=== PATIENT | male | born 1965 | race Caucasian/White ===

== ENCOUNTER 2021-03-09 12:16 | Emergency (ER) | payer BC, OTHER ==
[2021-03-09] MEDS ORDERED: ASPIRIN 81 MG CHEW (CHILDREN'S ASA) PO ONE (12:30)
[2021-03-09 12:32] LABS: HEMATOCRIT 48 % (40-54); LYMPHOCYTES % (AUTO) 14 % (12-44); MEAN CORPUSCULAR HEMOGLOBIN 29 PG (25-34); MEAN CORPUSCULAR HGB CONC 34 G/DL (32-36); MEAN CORPUSCULAR VOLUME 87 FL (80-99); MEAN PLATELET VOLUME 9.9 FL (7.4-10.4); MONOCYTES % (AUTO) 8 % (0-12); NEUTROPHILS % (AUTO) 74 % (42-75); PLATELET COUNT 229 10^3/uL (130-400); WHITE BLOOD COUNT 7.9 10^3/uL (4.3-11.0)
[2021-03-09 12:33] LABS: BASOPHILS # (AUTO) 0.1 10^3/uL (0.0-0.1); BASOPHILS % (AUTO) 1 % (0-10); EOSINOPHILS # (AUTO) 0.3 10^3/uL (0.0-0.3); EOSINOPHILS % (AUTO) 4 % (0-10); LYMPHOCYTES # (AUTO) 1.1 X 10^3 (1.0-4.0); MONOCYTES # (AUTO) 0.6 X 10^3 (0.0-1.0); NEUTROPHILS # (AUTO) 5.8 X 10^3 (1.8-7.8)
--- NOTE | 2021-03-09 12:37 | ED Chest Pain ---
General Chief Complaint: Chest Pain Stated Complaint: CHEST PAIN | SOB Source: patient History of Present Illness Date Seen by Provider: Mar 09, 2021 Time Seen by Provider: 12:20 Initial Comments 55-year-old male presenting with complaints of chest pressure and indigestion sensation since around 9 or 10 am this morning. He states he was just working on his boat when this started for him. He was also having shortness of breath which is unusual for him. He denies any nausea or vomiting, abdominal pain, diarrhea, burning with urination, cough, fever, chills, radiation of the pain. He did not take any medication to try and help with the symptoms. He does not feel like his chest pressure or shortness of breath worsens with exertion such as walking to the emergency department. It has been fairly constant since onset. He rates it at 6 or 7 out of 10. He has not had symptoms like this before. He denies having a prior heart attack or cardiac history other than high blood pressure. He recently was started on lisinopril. 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 NTG SL CORNCOB PIPE SUPERVISOR: No Associated Symptoms: No abdominal pain, No back pain, No diaphoresis, No dizziness, No edema, No fatigue, No fever/chills, No headache; heartburn; No nausea/vomiting, No rash; shortness of breath; No swelling/lump in chest, No syncope Allergies and Home Medications Allergies Coded Allergies: No Known Drug Allergies (Unverified , 03/09/21) Home Medications Pantoprazole Sodium 40 Mg Tablet., 40 MG PO DAILY Prescribed by: ANA ACOSTA on 03/09/21 5368 Patient Home Medication List Home Medication List Reviewed: Yes Review of Systems Review of Systems Constitutional: No chills, No fever EENTM: No Symptoms Reported Respiratory: See HPI Cardiovascular: See HPI Gastrointestinal: See HPI Genitourinary: No Symptoms Reported Musculoskeletal: no symptoms reported Skin: no symptoms reported Psychiatric/Neurological: No Symptoms Reported Endocrine: No Symptoms Reported Hematologic/Lymphatic: No Symptoms Reported Past Tyttnaw-Ftpmte-Zxnowb Hx Past Med/Social Hx: Reviewed Nursing Past Med/Soc Hx Patient Social History Alcohol Use: Denies Use Smoking Status: Never a Smoker 2nd Hand Smoke Exposure: No Recent Hopitalizations: No Seasonal Allergies Seasonal Allergies: Yes Past Medical History Surgeries: No Respiratory: No Cardiac: Yes Hypertension Neurological: No Genitourinary: No Gastrointestinal: No Musculoskeletal: Yes Gout Endocrine: No HEENT: No Cancer: No Psychosocial: No Integumentary: No Blood Disorders: No Physical Exam Vital Signs Vital Signs - First Documented 03/09/21 12:21 Temp 36.2 Pulse 103 Resp 16 B/P (MAP) 130/74 (92) Pulse Ox 96 Capillary Refill : Less Than 3 Seconds Height, Weight, BMI Height: '" Weight: lbs. oz. kg; BMI Method: General Appearance: No Apparent Distress, Obese HEENT: PERRL/EOMI Neck: Full Range of Motion, Normal Inspection, Non Tender, Supple; No Carotid Bruit Respiratory: Chest Non Tender, Lungs Clear, Normal Breath Sounds, No Accessory Muscle Use, No Respiratory Distress Cardiovascular: Regular Rate, Rhythm, Normal Peripheral Pulses Gastrointestinal: Normal Bowel Sounds, No Pulsatile Mass, Non Tender, Soft Rectal: Deferred Extremity: Normal Capillary Refill, Normal Inspection, Normal Range of Motion, Non Tender, No Pedal Edema Neurologic/Psychiatric: Alert, Oriented x3, No Motor/Sensory Deficits, 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 Norm as Tested Skin: Normal Color, Warm/Dry Images 1 - reports pressure sensation/indigestion throughout center of chest Progress/Results/Core Measures Results/Orders Lab Results Laboratory Tests Test 03/09/21 12:23 03/09/21 14:28 Range/Units White Blood Count 7.9 4.3-11.0 10^3/uL Red Blood Count 5.47 4.35-5.85 10^6/uL Hemoglobin 16.0 13.3-17.7 G/DL Hematocrit 48 40-54 % Mean Corpuscular Volume 87 80-99 FL Mean Corpuscular Hemoglobin 29 25-34 PG Mean Corpuscular Hemoglobin Concent 34 32-36 G/DL Red Cell Distribution Width 13.0 10.0-14.5 % Platelet Count 229 130-400 10^3/uL Mean Platelet Volume 9.9 7.4-10.4 FL Immature Granulocyte % (Auto) 1 % Neutrophils (%) (Auto) 74 42-75 % Lymphocytes (%) (Auto) 14 12-44 % Monocytes (%) (Auto) 8 0-12 % Eosinophils (%) (Auto) 4 0-10 % Basophils (%) (Auto) 1 0-10 % Neutrophils # (Auto) 5.8 1.8-7.8 X 10^3 Lymphocytes # (Auto) 1.1 1.0-4.0 X 10^3 Monocytes # (Auto) 0.6 0.0-1.0 X 10^3 Eosinophils # (Auto) 0.3 0.0-0.3 10^3/uL Basophils # (Auto) 0.1 0.0-0.1 10^3/uL Immature Granulocyte # (Auto) 0.1 0.0-0.1 10^3/uL Prothrombin Time 13.6 12.2-14.7 SEC INR Comment 1.0 0.8-1.4 Activated Partial Thromboplast Time 32 24-35 SEC Sodium Level 145 135-145 MMOL/L Potassium Level 4.0 3.6-5.0 MMOL/L Chloride Level 106 98-107 MMOL/L Carbon Dioxide Level 27 21-32 MMOL/L Anion Gap 12 5-14 MMOL/L Blood Urea Nitrogen 19 H 7-18 MG/DL Creatinine 1.15 0.60-1.30 MG/DL Estimat Glomerular Filtration Rate > 60 BUN/Creatinine Ratio 17 Glucose Level 119 H 70-105 MG/DL Calcium Level 9.8 8.5-10.1 MG/DL Corrected Calcium 9.7 8.5-10.1 MG/DL Magnesium Level 2.1 1.6-2.4 MG/DL Total Bilirubin 0.6 0.1-1.0 MG/DL Aspartate Amino Transf (AST/SGOT) 21 5-34 U/L Alanine Aminotransferase (ALT/SGPT) 34 0-55 U/L Alkaline Phosphatase 100 40-136 U/L Troponin I < 0.30 < 0.30 <0.30 NG/ML Pro-B-Type Natriuretic Peptide 31.8 <75.0 PG/ML Total Protein 7.0 6.4-8.2 GM/DL Albumin 4.1 3.2-4.5 GM/DL Lipase 32 8-78 U/L My Orders Orders - ANA ACOSTA MD Cbc With Automated Diff (03/09/21 12:21) Magnesium (03/09/21 12:21) Chest 1 View Ap/Pa Only (03/09/21 12:21) Ekg Tracing (03/09/21 12:21) Comprehensive Metabolic Panel (03/09/21 12:21) Protime With Inr (03/09/21 12:21) Partial Thromboplastin Time (03/09/21 12:21) O2 (03/09/21 12:21) Monitor-Rhythm Ecg Trace Only (03/09/21 12:21) Aspirin Chewable Tablet (Baby Aspirin Ch (03/09/21 12:30) Ed Iv/Invasive Line Start (03/09/21 12:21) Lipase (03/09/21 12:21) Troponin I Fs (03/09/21 12:21) Probnp Fs (03/09/21 12:21) Ns Iv 1000 Ml (Sodium Chloride 0.9%) (03/09/21 12:42) Pantoprazole Injection (Protonix Injecti (03/09/21 12:42) Metoprolol Tartrate Injection (Lopressor (03/09/21 12:42) Troponin I Fs (03/09/21 14:15) Medications Given in ED Current Medications Medications Dose Ordered Sig/Carlos Alberto Route Start Time Stop Time Status Last Admin Dose Admin Aspirin 324 mg ONCE ONCE PO 03/09/21 12:30 03/09/21 12:31 DC 03/09/21 12:33 324 MG Vital Signs/I&O 03/09/21 03/09/21 12:21 15:15 Temp 36.2 Pulse 103 69 Resp 16 16 B/P (MAP) 130/74 (92) 144/90 Pulse Ox 96 97 Progress Progress Note #1: Progress Note Check labs as well as electrocardiogram and chest x-ray to evaluate for possible acute coronary syndrome or MS. With his shortness of breath will also for pneumonia or effusion with the x-ray. Try treating with 325 mg of aspirin for cardiac chest pain, a liter of IV fluids for hydration, Protonix for indigestion Differential diagnosis includes myocardial infarction, pneumonia, hypertensive emergency, heart failure, pleural effusion, lung mass Progress Note #2: Time: 13:19 Progress Note Chest x-ray does not show any acute abnormality. His electrocardiogram does not show ST elevation. The CBC and chemistry are stable without acute significant abnormality and his cardiac enzymes are negative. Will check and see how the patient is feeling and anticipate getting repeat enzymes at 2 hours Progress Note #3: Time: 14:15 Progress Note Will see what 2nd troponin shows but provided it is still negative will plan on discharge to home to have him follow up as outpatient and may need risk stratification testing. Continue a PPI while waiting on follow up Progress Note #4: Progress Note 2nd troponin still < 0.3 so will discharge to home. Pt reports symptoms completely resolved. Treat with PPI and have him check with clinic for risk stratificaiton testing. Return and follow up precautions reviewed. Initial ECG Impression Date: Mar 09, 2021 Initial ECG Impression Time: 12:24 Initial ECG Rate: 100 Initial ECG Rhythm: S.Tach Initial ECG Comparisson: No Previous ECG Available Comment Sinus tachycardia with a heart rate 100 bpm. WA interval [address] elevation. QT interval 324 ms with a QTc interval 418 ms. No previous tracing available for comparison. Diagnostic Imaging Diagonstic Imaging: Xray Plain Films/CT/US/NM/MRI: chest Comments NAME: JENISE LEONARDO [facility] REC#: [id number] PT STATUS: REG ER : 1965 PHYSICIAN: ANA ACOSTA MD ADMIT DATE: 03/09/21/ER FS Draft Date of Exam:03/09/21 CHEST 1 VIEW AP/PA ONLY INDICATION: Chest pain. No prior examination is available for comparison. FINDINGS: The heart size, mediastinal configuration, and pulmonary vascularity are within normal limits. There is no pleural effusion, pneumothorax, or pneumonia. The osseous structures are unremarkable. IMPRESSION: No acute cardiopulmonary abnormality. Dictated on workstation # [id number] Dict: 03/09/21 1235 Trans: 03/09/21 1240 [facility] [id number] Interpreted by: ANNAMARIA MATTHEW MD Electronically signed by: Reviewed: Reviewed by Me Departure Impression Primary Impression: Chest pressure Additional Impression: Shortness of breath Disposition: 01 HOME, SELF-CARE Condition: Improved Departure-Patient Inst. Decision time for Depature: 14:57 Referrals: UNKNOWN (PCP) Primary Care Physician [facility] [place] Patient Instructions: Chest Pain, Adult ED, Low Cholesterol, Saturated Fat, and Trans Fat Diet , Shortness of Breath, Adult ED Add. Discharge Instructions: Follow up with Tanya Burgos and the [facility] clinic for recheck and may need to have cardiac stress test or other testing for further evaluation. No signs of heart attack today with testing. 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 All discharge instructions reviewed with patient and/or family. Voiced understanding. Scripts Pantoprazole Sodium (Pantoprazole Sodium) 40 Mg Tablet.dr 40 MG PO DAILY for gastritis/esophagitis for 30 Days, #30 TAB 0 Refills Prov: ANA ACOSTA MD 03/09/21 ANA ACOSTA MD Mar 09, 2021 12:37
--- NOTE | 2021-03-09 12:41 | Diagnostic Imaging Report ---
INDICATION: Chest pain. No prior examination is available for comparison. FINDINGS: The heart size, mediastinal configuration, and pulmonary vascularity are within normal limits. There is no pleural effusion, pneumothorax, or pneumonia. The osseous structures are unremarkable. IMPRESSION: No acute cardiopulmonary abnormality. Dictated by: Dictated on workstation # [id number]
[2021-03-09 12:42] LABS: PROTHROMBIN TIME PATIENT 13.6 SEC (12.2-14.7)
[2021-03-09] MEDS ORDERED: PANTOPRAZOLE 40 MG (PROTONIX) VIAL IV STA (12:42)
[2021-03-09] MEDS ORDERED: meTOprolol 5 MG/5 ML (LOPRESSOR) VIAL IV STA (12:42)
[2021-03-09] MEDS ORDERED: NS IV 1000 ML 1,000 ML IV STA (12:42)
[2021-03-09 12:56] LABS: ALANINE AMINOTRANSFERASE 34 U/L (0-55); ALBUMIN 4.1 GM/DL (3.2-4.5); ALKALINE PHOSPHATASE 100 U/L (40-136); BILIRUBIN,TOTAL 0.6 MG/DL (0.1-1.0); BUN/CREATININE RATIO 17; CALCIUM 9.8 MG/DL (8.5-10.1); CARBON DIOXIDE 27 MMOL/L (21-32); CHLORIDE 106 MMOL/L (98-107); CREATININE SERUM 1.15 MG/DL (0.60-1.30); GFR ESTIMATED > 60; GLUCOSE 119 MG/DL (70-105); LIPASE 32 U/L (8-78); MAGNESIUM 2.1 MG/DL (1.6-2.4); SODIUM 145 MMOL/L (135-145)
[2021-03-09] MEDS ORDERED: PANT40TA52 PO (14:58)
[2021-03-09 15:15] VITALS: BP 144/90
== END 2021-03-09 15:15 | disposition home or self-care (01) ==
LOC: ER FS 12:19
DX: R07.89 Other chest pain (principal); R06.02 Shortness of breath; I10 Essential (primary) hypertension; E66.9 Obesity, unspecified
CPT/HCPCS: 36415; 71045; 80053; 83690; 83735; 83880; 84484; 85025; 85610; 85730; 93005; 93041